=== PATIENT | male | born 1945 | race Caucasian/White ===

== ENCOUNTER → 2016-10-30 | Day surgery (SDC) | payer MEDICARE ==
[~2016-10-30] MED LIST: BUPIVACAINE HCL PF 0.75% 30 ML VIAL ONE; BUPIVACAINE/EPINEPHRINE 0.25% PF 30 ML VIAL ONE; EPINEPHrine HCL (1:1000) 30 MG/30 ML VIAL ONE; LACTATED RINGER'S 1000 ML INJ 1,000 ML ONE; LIDOCAINE 1.5%/EPINEPHrine 1:200,000 PF SOLN 30 ML AMP ONE; MIDAZOLAM HCL 5 MG/ML VIAL (1 ML) ONE; ONDANSETRON HCL 4 MG/2 ML VIAL IV PUSH ONE; PROPOFOL 100 MG/10 ML INJ IV ONE; ceFAZolin 2 GM PREMIX 50 ML ONE
--- NOTE | 2016-11-05 13:08 | MP ---
cc: ELVIA OTREGA M.D. DATE OF SURGERY 10/30/2016 PREOPERATIVE DIAGNOSIS Right shoulder rotator cuff tear, right shoulder impingement syndrome, right shoulder SLAP labral biceps tearing, right shoulder osteoarthritis acromioclavicular joint. POSTOPERATIVE DIAGNOSES Right shoulder rotator cuff tear, right shoulder impingement syndrome, right shoulder SLAP labral biceps tearing, right shoulder osteoarthritis acromioclavicular joint. PROCEDURE Right shoulder arthroscopic rotator cuff repair, right shoulder arthroscopic subacromial decompression, right shoulder arthroscopic extensive debridement of SLAP labral tear and biceps tear, right shoulder arthroscopic and distal clavicle excision. SURGEON Dr. Elvia Ortega NEUROSURGERY SPINE PHYSICIAN ADRIAN Rowe ANESTHESIA General with interscalene block ESTIMATED BLOOD LOSS Less than 50 cc COMPLICATIONS None IMPLANTS USED Arthrex JUSTIFICATION This patient is a 71-year-old male with injury to the right shoulder. He has had persistence of the pain and weakness. In regards to his condition, failed conservative treatment, clinical exam, as well as MRI confirmed the above-named findings and the patient was counseled as to the risks, benefits and alternatives to the above-named proposed surgical procedure. He did wish to proceed with surgery. PROCEDURE IN DETAIL A written consent was obtained. The patient identified by name, taken to the operating room, placed supine on the operating room table and general anesthesia was administered as well as two grams of IV Ancef. He did receive a preoperative interscalene block. The patient was carefully turned to the left lateral decubitus position. A lateral arm was placed. All bony prominences and pressure points were well padded. The right arm was gently placed with an arthroscopic arm green and 10 pounds of traction applied. The right shoulder prepped and draped using as Isopropyl alcohol, Hibiclens solution and Chloraprep solution. A standard posterior anterior glenohumeral arthroscope portal was established. The glenohumeral joint revealed evidence of labral tearing both anterior, superior and posterior to the device origin. The biceps itself also showed evidence of traumatic tearing. An arthroscopic shaver was introduced from the anterior portal and extensive debridement of the glenohumeral joint was performed to include the anterior, superior, and posterior portions of the labrum. The undersurface of the biceps was also debrided. Minimal chondromalacia of the glenohumeral joint was noted. There was evidence of full-thickness torn retractor rotator cuff supraspinatus tendon tear which was also debrided. Attention was turned to the subacromial space. There was evidence of impingement with bursitis. An arthroscopic shaver was introduced through a lateral portal. A subacromial decompression was performed. The shaver was used to perform a bursectomy. The arthroscopic bur was used to perform an acromioplasty and the cautery device was used to release the coracoacromial ligament. The bur was used to decorticate the greater tuberosity in preparation for rotator cuff tendon repair. An Arthrex scorpion device was used to shuttle #2 FiberLink sutures to the far anterior posterior portion of the torn tendon. Two Arthrex 4.75 mm Bio SwiveLock anchors were inserted along the medial row. The FiberTape through each anchor was then placed through the anterior posterior portion of the torn tendon. An Arthrex double row speed bridge construct was created with a posterolateral and anterolateral anchor applied. After appropriate tensioning of sutures and insertion of lateral anchors, the rotator cuff repair was probed and noted excellent stability and fixation. The arthroscopic portals were closed with 3-0 Prolene sutures. Sterile dressing applied. The patient was placed in sling and swath immobilizer. He tolerated the procedure well with no intraoperative noted. Fan Leos, physician operating room assistant certified, was present during the entire procedure to include patient positioning and the procedure. The medical necessity of a physician operating room assistant was indicated in this case due to the complexity of the procedure. He assisted with appropriate manipulation of the arm and also manipulation of the camera. He assisted with both shuttling of sutures and implantation of suture anchors for purposes of rotator cuff tendon repair. MD JANE Melendez/ABRAHAM /2:15 PM /12:57 PM
== END | disposition home or self-care (01) ==
LOC: ESDC 10:44
PROVIDERS: ATTEND Orthopaedic Surgery Sports Medicine
DX: M75.121 Complete rotator cuff tear or rupture of right shoulder, not specified as traumatic (principal); M75.41 Impingement syndrome of right shoulder; S43.431A Superior glenoid labrum lesion of right shoulder, initial encounter; M19.011 Primary osteoarthritis, right shoulder
CPT/HCPCS: 01630; 01991; 29823; 29824; 29826; 29827; 64417; C1713; J0171; J0690; J2250; J2405; J7120